=== PATIENT | female | born 2000 | race Caucasian/White ===

== ENCOUNTER 2020-11-30 23:48 | Emergency (ER) | payer OTHER ==
[~2020-11-30] VITALS: Ht 165.1 cm; Wt 63.6 kg
[2020-12-01] MEDS ORDERED: PERTUSS(ACELL),DIPH,TET VAC/PF 0.5 ML SYRINGE IM. ONE (01:00)
[2020-12-01 01:30] VITALS: BP 116/65
== END 2020-12-01 01:30 | disposition home or self-care (01) ==
LOC: EMS 23:53
DX: S71.112A Laceration without foreign body, left thigh, initial encounter (principal); W45.8XXA Other foreign body or object entering through skin, initial encounter; Y93.89 Activity, other specified; Y92.89 Other specified places as the place of occurrence of the external cause; Y99.8 Other external cause status
CPT/HCPCS: 90471; 90715; 99283